=== PATIENT | male | born 1935 | race Caucasian/White ===

== ENCOUNTER → 2016-11-21 | Outpatient (CLI) | payer BC ==
[~2016-11-21] MED LIST: ASCA500 PO; CPRUNK PO; LEVE500T26 PO; MULT-506 PO; PRCUNK PO; TIMOLOL OPB
== END | disposition home or self-care (01) ==
LOC: C.LAB 13:34
PROVIDERS: ATTEND Nurse Practitioner Adult Health
DX: N39.0 Urinary tract infection, site not specified (principal); R33.9 Retention of urine, unspecified; N31.9 Neuromuscular dysfunction of bladder, unspecified

== ENCOUNTER → 2017-01-07 | Outpatient (CLI) | payer BC | END | disposition home or self-care (01) | LOC: C.LABSPEC 17:16 | PROVIDERS: ATTEND Nurse Practitioner Family | DX: N39.0 Urinary tract infection, site not specified (principal); R33.9 Retention of urine, unspecified ==

== ENCOUNTER → 2017-07-01 | Outpatient (CLI) | payer BC | END | disposition home or self-care (01) | LOC: C.LAB 14:36 | PROVIDERS: ATTEND Nurse Practitioner Family | DX: N39.0 Urinary tract infection, site not specified (principal); R10.31 Right lower quadrant pain ==

== ENCOUNTER → 2017-11-05 | Outpatient (CLI) | payer BC ==
--- NOTE | 2017-11-12 08:54 | CODING QUERY MEDICAL NECESSITY ---
CQSUPPORTING DIAGNOSIS NEEDED A supporting diagnosis is required for the test/procedure performed on this patient in order for us to be reimbursed by the patient's insurance. Please provide a supporting diagnosis for the following test/procedure listed below next to the test name along with your signature. *If there is no additional diagnosis for this patient that would support the following test/procedure please document that below next to the test/procedure. Test(s)/Procedure(s) that require a supporting diagnosis: DOS 11/05/17 PROSTATE SPECIFIC TEST Provider Signature: Date: Thank you Amanda Gil [employer] Once completed, please kindly fax back to [phone] For questions please call [phone]
== END | disposition home or self-care (01) ==
LOC: C.LAB 13:50
PROVIDERS: ATTEND Urology
DX: N40.1 Benign prostatic hyperplasia with lower urinary tract symptoms (principal); N39.0 Urinary tract infection, site not specified

== ENCOUNTER 2023-08-15 09:22 | Observation (INO) ==
--- NOTE | 2023-07-19 15:23 | PAT Medication Instructions ---
Medication Instructions Date of Service July 19, 2023 Home Medications Medication Instructions Recorded sildenafil 100 mg tablet (Viagra) 100 mg PO DAILY PRN sexual 02/20/23 activity #10 tabs latanoprost 0.005 % eye drops (Xalatan) 1 drp ophthalmic (eye) HS levetiracetam 500 mg tablet (Keppra) 500 mg PO BID multivitamin 1 tab PO QAM naproxen sodium 220 mg tablet (Aleve) 220 mg PO DAILY PRN sildenafil 100 mg tablet (Viagra) 100 mg PO DAILY PRN aspirin 81 mg capsule 81 mg PO QPM lisinopril 20 mg-hydrochlorothiazide 12.5 mg tablet 1 tab PO QAM ASK your surgeon for instructions naproxen sodium 220 mg tablet (Aleve) 220 mg PO DAILY PRN DO NOT take the morning of surgery multivitamin 1 tab PO QAM sildenafil 100 mg tablet (Viagra) 100 mg PO DAILY PRN lisinopril 20 mg-hydrochlorothiazide 12.5 mg tablet 1 tab PO QAM Take morning of surgery With a small sip of water, OTHERWISE NOTHING TO EAT OR DRINK AFTER MIDNIGHT: levetiracetam 500 mg tablet (Keppra) 500 mg PO BID Take evening before surgery latanoprost 0.005 % eye drops (Xalatan) 1 drp ophthalmic (eye) HS levetiracetam 500 mg tablet (Keppra) 500 mg PO BID aspirin 81 mg capsule 81 mg PO QPM (unless directed otherwise by surgeon) Other Notes If you have any questions please call us at [phone] or [phone] or [phone] or [phone]
--- NOTE | 2023-07-26 14:42 | Anesthesiology Consultation ---
Date of Service July 26, 2023 Assessment & Plan (1) Encounter for pre-operative examination: - awaiting [facility] PCP 08/05/23 pre-op appt. - self-catheterization: patient and his were interested in discussing prince- operative catheterization and surgeon's typical approach, I advised they contact Dr. Thibodeaux's office, [place] for additional discussion on this. They expressed appreciation for this information, denied additional questions or concerns. - Outpatient joint assessment: Patient is currently scheduled for inpatient pathway. If re-evaluated and patient/surgeon requests outpatient pathway, patient is not recommended candidate for outpatient joint program from anesthesia standpoint. Chart Review Chart Review: Pending: Refer to Additional Notes / Consult section and Patient seen in Pre Admission Testing Teaching & Discussion Pre-Anesthesia Teaching/Discussion Notes: Instructed NPO after midnight before surgery, except medications with 15 cc of water. Medication instructions provided according to the PAT guidelines. History Surgery Operation Date: 08/15/23 07:00 Proposed Procedures p Left total Hip Arthroplasty - Stef Thibodeaux MD Height/Weight Height: 5 ft 9 in Weight: 79.4 kg Allergies Allergy/AdvReac Type Severity Reaction Status Date / Time No Known Allergies Allergy Mild Verified 07/19/23 10:46 Medications Home Medications Medication Instructions Recorded Confirmed Last Taken latanoprost 0.005 % eye drops 1 drp ophthalmic (eye) HS 09/08/20 07/19/23 09/11/20 22:30 (Xalatan) levetiracetam 500 mg tablet 500 mg PO BID 09/08/20 07/19/23 09/12/20 06:45 (Keppra) multivitamin 1 tab PO QAM 09/08/20 07/19/23 09/11/20 09:00 naproxen sodium 220 mg tablet 220 mg PO DAILY PRN Pain 09/08/20 07/19/23 09/05/20 (Aleve) sildenafil 100 mg tablet (Viagra) 100 mg PO DAILY PRN sexual 02/20/23 07/19/23 Unknown activity #10 tabs aspirin 81 mg capsule 81 mg PO QPM 07/19/23 07/19/23 Unknown lisinopril 20 1 tab PO QAM 07/19/23 07/19/23 Unknown mg-hydrochlorothiazide 12.5 mg tablet Past Medical History Medical History BPH (benign prostatic hyperplasia) Carotid artery stenosis 50-69% stenosis L ICA, less than 50% stenosis R ICA; denies dizziness, lightheadedness, presyncope or visual changes CKD (chronic kidney disease) stage 3, GFR 30-59 ml/min Flaccid bladder History of basal cell carcinoma History of urinary self-catheterization straight cath TID Melanoma surgery RBBB Seizure last seizure ~2007, grand mal seizures. no problems while on medication. follows with Wesley Álvarez Patient denies h/o stroke, heart attack, heart failure, DM, HTN, blood clots/DVTs or blood transfusions. Exercise / Class Metabolic Activity II 4-5 Yardwork/Stairs/Walk up hill (denies chest discomfort or shortness of breath with 1 FOS) Past Family History Family History Other No family history of adverse response to anesthesia Past Surgical History Surgical History History of cystoscopy History of hernia surgery 09/12/2020 @ [facility] History of melanoma excision History of surgical removal of skin lesion left upper arm Past Anesthesia History No Hx of Anesthesia Complications and No Family Hx of Anesthesia Complications History of PONV No Hx of PONV and No Hx of Motion Sickness Social History Smoking Status: Former smoker tobacco type: pipe Do You Dip or Chew Tobacco: No Smoking End Date: quit smoking a pipe 50yrs ago Hx Alcohol Use: No (quit 1979) Hx Substance Use: No substance use type: does not use Review of Systems Snoring, denies witnessed apneas. Patient denies chest pain, shortness of breath, dyspnea on exertion, reflux, fever, chills, cough, wheezing, or palpitations. Physical Exam Vital Signs Vitals BP 150/87 P 69 TEMP 97.5 SP02 99% on RA RESP 18 Physical Patient resting comfortably in chair in no acute distress, alert and oriented, responding appropriately throughout visit Full cervical extension range of motion without pain TMD 3.5 finger breadths Mallampati Score 2 Dentition: several crowns, denies chipped or loose teeth, implants or bridges Lungs: normal respiratory effort. Good air movement, clear throughout to auscultation, no adventitious breath sounds Cardiac: regular rate and rhythm, no murmurs noted Carotid arteries: negative bruit bilat Lab Results Anesthesia Preop Results Results Anesthesia Widget: WBC 7.66 K/ul (4.8-10.8) 07/26/23 Hgb 13.7 g/dl (14.0-18.0) L 07/26/23 Hct 40.6 % (42.0-52.0) L 07/26/23 Plt 280 K/uL (130-400) 07/26/23 Na 137 mmol/L (136-145) 07/26/23 K 4.3 mmol/L (3.5-5.1) 07/26/23 Cl 103 mmol/L (98-107) 07/26/23 CO2 28 mmol/L (21-32) 07/26/23 BUN 26 mg/dl (6-23) H 07/26/23 Creat 1.19 mg/dl (0.6-1.4) 07/26/23 Glucose Level 81 mg/dl (70-99(Fasting)) 07/26/23 PT 11.0 Seconds (9.0-12.0) 07/26/23 PTT 25.9 Seconds (21.0-31.0) 07/26/23 INR 1.0 (0.9-1.1) 07/26/23 Urine Color Yellow 07/26/23 Urine Appearance Clear (Clear) 07/26/23 Urine pH 7.0 (4.5-7.5) 07/26/23 Urine Specific Tiline 1.016 (1.000-1.030) 07/26/23 Urine Protein Negative (Negative) 07/26/23 Urine Glucose (UA) Negative (Negative) 07/26/23 Urine Ketones Negative (Negative) 07/26/23 Urine Blood Negative (Negative) 07/26/23 Urine Nitrite Negative (Negative) 07/26/23 Urine Bilirubin Negative (Negative) 07/26/23 Urine Urobilinogen Negative (Negative) 07/26/23 Urine Leukocyte Esterase Trace (Negative) H 07/26/23 Urine WBC (Auto) 1-5 /hpf (0-5) 07/26/23 Urine RBC (Auto) 0-4 /hpf (0-4) 07/26/23 Urine Hyaline Casts (Auto) 1-5 /lpf (0-5) 07/26/23 Urine Epithelial Cells (Auto) 0-5 /lpf (0-5) 07/26/23 Urine Bacteria (Auto) 2+ (Negative) H 07/26/23 Blood Type A Positive 07/26/23 Antibody Screen NEGATIVE 07/26/23 Testing Laboratory Results Surgeon's office notified of abnormal UA. Electrocardiogram Date: 07/26/23 NSR, rate 72 bpm RBBB Other Testing Carotid doppler 07/27/23 50-69% stenosis left ICA < 50% stenosis right ICA
--- NOTE | 2023-07-31 09:39 | History & Physical Report ---
Date of Service July 31, 2023 Assessment & Plan (1) Osteoarthritis of left hip: Plan: PRE-OP Diagnosis: Left hip osteoarthritis Planned Procedure: Left total hip arthroplasty Plan: Patient is scheduled to undergo this procedure at the [facility] with a 23-hour observation admission with Dr. Thibodeaux on August. Risks and complications of the procedure such as: Infection, bleeding, pain, scarring, nerve blood vessel damage, weakness, wound problems, stiffness, incomplete relief of symptoms, hardware failure, hardware loosening, wear, fracture, tendon or ligament injury, dislocation, leg length inequality, blood clots, Embolism, heart attack, stroke and were explained to the patient at his visit today. Informed consent to perform the procedure was obtained. Patient also understands risks of proceeding with surgical intervention during the COVID-19 pandemic. Currently he is asymptomatic and states that he has not been in contact with anyone positive for the virus recently. Patient has an appointment to meet with anesthesia later today and while there will obtain CBC with differential, complete metabolic panel, PT/INR, blood type and screen, urinalysis, urine culture and sensitivity, EKG, and a [facility] culture for MRSA. Patient will also need preoperative medical clearance from their primary care provider. Patient is scheduled to see his physicians CHENTE Byers on August 05. Patient states that he plans on doing in-home physical therapy for the first 1 to 2 weeks postoperatively. Patient has a walker, raised toilet seat, shower chair and will purchase a hip kit. During today's visit we reviewed the total hip packet as well as precautions. We discussed discharge planning from the hospital. I provided paperwork to obtain a handicap placard for their vehicle. We discussed lectures offered by [facility] in regards to joint replacement surgery via Zoom. I advised the patient that upon discharge from hospital we will prescribe a narcotic pain medication and anti-inflammatory. Patient will also be on an 81 mg aspirin twice daily for blood clot prevention. Patient will be scheduled for 2-week postoperative follow-up visit with myself on August 28. At that visit we will Provide the patient with an order for outpatient physical therapy and rehab protocol. This chart was completed utilizing [employer] voice recognition software. Grammatical errors, random word insertions, pronoun errors, and in complete sentences are an occasional consequence of the system. Any questions or concerns about the content, text, or information contained within the body of this dictation should be addressed directly to the physician for clarification. History of Present Illness Chief Complaint: Chief Complaint: Left hip pain Primary Care Provider: Courtney Urbina DO History of Present Illness (including history relevant to procedure): This 87-year-old male presents to the clinic today for his preoperative history and physical. Patient complains of a 5-year history of left hip pain that has gradu ally increased over time. Patient states that he fell 2 bland ago and has had increased pain since that event. Patient states that he has tried ultrasound- guided corticosteroid injections, physical therapy, use of nonsteroidal agents and has been using a cane as assistive device for the past several months. Patient states he has great difficulty doing stairs and is starting to notice issues with performing activities of daily living, such as being able [place] He states that over the past 2 bland he has had to use a cart. He is electing to proceed with surgical intervention at this time. Review Of Systems: A 12 point review of systems is formed and is unremarkable except for those things stated in the HPI and past medical history. Past Medical History: Problems: Degenerative joint disease of left hip Left hip pain Cancer Left shoulder pain History of seizures Procedure History Procedure Procedure Date Comments Melanoma Hernia repair - left upper arm Allergies and Sensitivities: No Known Medication Allergies Current Home Meds: (Last Updated 07/29 16:27) aspirin 81 mg PO Daily ciprofloxacin (Cipro 500 mg oral tablet) 500 mg PO tid UTI preop hydroCHLOROthiazide-lisinopril (hydroCHLOROthiazide-lisinopril 12.5 mg-20 mg oral tablet) 90 each, take 1 tablet by mouth every morning Responsible Provider: COURTNEY URBINA 07/26 13:08 latanoprost ophthalmic (latanoprost 0.005% ophthalmic solution) instill 1 drop INTO AFFECTED EYE(S) once daily every evening Store intact bottles under refrigeration. Once opened, the container may be stored at room temperature for 6 weeks. Amber Dominguez 05/18 10:33 levETIRAcetam (levETIRAcetam 500 mg oral tablet) take 1 tablet by mouth twice a day multivitamin (Multiple Vitamins oral tablet) 1 tab PO Daily naproxen (Aleve) 2-3 a day Initial Wt: 07/26 79.0 kg 174 lb Allergies Allergy/AdvReac Type Severity Reaction Status Date / Time No Known Allergies Allergy Mild Verified 07/19/23 10:46 Home Medications Medication Instructions Recorded Confirmed Type latanoprost 0.005 % eye drops 1 drp ophthalmic (eye) HS 09/08/20 07/19/23 History (Xalatan) levetiracetam 500 mg tablet 500 mg PO BID 09/08/20 07/19/23 History (Keppra) multivitamin 1 tab PO QAM 09/08/20 07/19/23 History naproxen sodium 220 mg tablet 220 mg PO DAILY PRN Pain 09/08/20 07/19/23 History (Aleve) sildenafil 100 mg tablet (Viagra) 100 mg PO DAILY PRN sexual 02/20/23 07/19/23 Rx activity #10 tabs aspirin 81 mg capsule 81 mg PO QPM 07/19/23 07/19/23 History lisinopril 20 1 tab PO QAM 07/19/23 07/19/23 History mg-hydrochlorothiazide 12.5 mg tablet Past Med/Surg History Medical History BPH (benign prostatic hyperplasia) Carotid artery stenosis 50-69% stenosis L ICA, less than 50% stenosis R ICA; denies dizziness, lightheadedness, presyncope or visual changes CKD (chronic kidney disease) stage 3, GFR 30-59 ml/min Flaccid bladder History of basal cell carcinoma History of urinary self-catheterization straight cath TID Melanoma surgery RBBB Seizure last seizure ~2007, grand mal seizures. no problems while on medication. follows with Courtney Urbina Surgical History History of cystoscopy History of hernia surgery 09/12/2020 @ [facility] History of melanoma excision History of surgical removal of skin lesion left upper arm Family History Other No family history of adverse response to anesthesia Social History Smoking Status: Former smoker Second Hand Exposure: Yes (hx); Do You Dip or Chew Tobacco: No; Hx Alcohol Use: No (quit 1979) Hx Substance Use: No Preferred Language: Malay Communication Ability: Effective Petrologist Required: No Beliefs That Will Affect Care: None Current Living Situation: Spouse Feels Safe at Home: Yes Assistive Devices: Contacts and Hearing Aid - Bilateral Review of Systems All systems reviewed & are unremarkable except as noted in Subjective Physical Exam Physical Exam: Physical Exam: (relevant to the procedure, including heart and lung evaluation) General: Alert and oriented x3 with proper grooming and hygiene Eyes: Pupils are equal and reactive to light with accommodation. Extraocular movements are intact Throat: Posterior oropharynx is clear with absence of edema, erythema or exu date. Dentition is appropriate Cardiac: Regular rate and rhythm with no murmurs or gallops appreciated Lungs: Clear to auscultation throughout with no wheezing, rales or rhonchi Abdomen: Nonobese, nondistended, nontender with NABS Extremities: Left hip: Flexion is limited to 80 degrees, internal rotation to 0 degrees and external rotation to 50 degrees. There is audible crepitation with passive range of motion. Stinchfield test and straight leg raise test are both positive. Scour impingement test is positive. Patient is neurovascular intact in the left lower extremity but does walk with a slight antalgic gait. Neuro: Cranial nerves II through XII are intact with no motor or sensory deficit Skin: Normal in appearance with no open skin areas or discharge Results & Data Diagnostic Findings Studies o(relevant to the procedure): -xrays that were done include AP pelvis, cross-table lateral, and false profile view of the left hip. These are compared with his prior films done back in August 2022. There is some subtle worsening in terms of irregularity of the acetabular and femoral head surfaces where he w as already [id number] arthritis.
[~2023-08-15 09:22] MED LIST changes: +ACETAMINOPHEN 500 MG TAB PO SCH; -ASCA500 PO; +BUPIVACAINE 0.5 % 5 MG/1 ML PF 10ML VIAL ONE; -CPRUNK PO; +CeleBREX 200 MG CAP PO SCH; +FAMOTIDINE 20 MG TAB PO SCH; -LEVE500T26 PO; +LR 500ML BOLUS, THEN 15ML/HR IV SCH; +LR 60ML/HR IV SCH; -MULT-506 PO; -PRCUNK PO; +ROPIVACAINE 0.5% 5 MG/ML 30 ML VIAL ONE; +ROPIVACAINE 0.5% HCL/PF 150 MG, BUPIVACAINE 0.75% MPF 20 ML, EPINEPHrine 0.15 MG, Ketor... INFIL SCH; +Scopolamine 1 MG TDSY TD SCH; -TIMOLOL OPB; +TRANEXAMIC ACID 1,000 MG **IV Intra-op IV SCH; +TRANEXAMIC ACID 1,000 MG **IV Pre-op IV SCH; +ceFAZolin 2000MG 2,000 MG/15 ML SYR IV SCH; +dexAMETHasone 4 MG TAB PO SCH; +traMADol HCL 50 MG TABLET PO SCH
[2023-08-15] MEDS ORDERED: HYDROmorphone INJ 1 MG/ML SYRINGE IV PRN (10:28)
[2023-08-15] MEDS ORDERED: ePHEDrine sulfate 50 MG/ML AMP IV PRN (10:28)
[2023-08-15] MEDS ORDERED: ONDANSETRON INJ 2 MG/ML 2 ML VIAL IV PRN ×2 (10:28→13:33)
[2023-08-15] MEDS ORDERED: ATROPINE SULFATE 0.1 MG/ML 10ML SYR IV PRN (10:28)
[2023-08-15] MEDS ORDERED: MIDAZOLAM HCL 1 MG/ML 2ML VIAL ONE (10:43)
[2023-08-15] MEDS ORDERED: fentaNYL citrate PF 100 MCG/2 ML VIAL ONE (11:02)
--- NOTE | 2023-08-15 11:04 | History & Physical Bridge Note ---
Date of Service August 15, 2023 History & Physical Bridge Note I have examined the patient, reviewed the History & Physical and in the interval since the performance of the History & Physical I have noted the following changes of clinical significance: no changes noted
[2023-08-15] MEDS ORDERED: ORTHO JOINT ANESTHETIC ONE (11:20)
[2023-08-15] MEDS ORDERED: PROPOFOL IV EMULSION 10 MG/ML 20 ML VIAL IV ONE (12:08)
[2023-08-15] MEDS ORDERED: NALOXONE HCL 0.4 MG/1 ML VIAL/CARP IV PRN (13:33)
[2023-08-15] MEDS ORDERED: METOCLOPRAMIDE HCL INJ 5 MG/ML 2 ML VIAL IV PRN (13:33)
[2023-08-15] MEDS ORDERED: HYDROmorphone INJ 0.5 MG/0.5 ML SYR IV PRN (13:33)
[2023-08-15] MEDS ORDERED: bisacodyL 10 MG SUPP PR PRN (13:33)
[2023-08-15] MEDS ORDERED: oxyCODONE HCL IR 5 MG TAB (IMMEDIATE RELEASE) PO PRN (13:33)
[2023-08-15] MEDS ORDERED: TAMSULOSIN HCL 0.4 MG CAP PO PRN (13:33)
[2023-08-15] MEDS ORDERED: diphenhydrAMINE 50 MG/ML VIAL IV PRN (13:33)
[2023-08-15] MEDS ORDERED: ALUMINUM/MAGNESIUM SUSP 30 ML UDC PO PRN (13:33)
[2023-08-15] MEDS ORDERED: MAGNESIUM HYDROXIDE SUSP 30 ML UDC PO PRN (13:33)
--- NOTE | 2023-08-15 13:33 | Operative Report ---
Post Operative Report Pre & Post Diagnosis Operation Date: 08/15/23 11:00 Pre-Op Diagnosis: Left Hip Osteoarthitis Post-Op Diagnosis: Left Hip Osteoarthitis I identified the patient and participated in the time-out.: Yes Procedure Operation Date: 08/15/23 11:00 Actual Procedures p Left Total Hip Arthroplasty--Uncemented(Left) - Stef Thibodeaux MD Surgeon Stef Thibodeaux MD Communications Attendant Carmen Navarro PA-C Estimated Blood Loss 50 Findings Consistent with Post-Op Diagnosis Specimens femoral head Description of Procedure I was present during the entire case assisting with positioning, prepping, draping, wound retraction, wound closure, dressing and abduction pillow placement. No fellow present. Please see Dr. Thibodeaux procedure note for specifics of the case. I attest to the content of the Intraoperative Record and any orders documented therein. Any exceptions are noted below.
--- NOTE | 2023-08-15 13:51 | Operative Report ---
Post Operative Report Pre & Post Diagnosis Operation Date: 08/15/23 11:00 Prepreoperative diagnosis: Left hip arthritis. Postoperative diagnosis: Left hip arthritis I identified the patient and participated in the time-out.: Yes Procedure Operation Date: 08/15/23 11:00 Left total hip replacement Surgeon Stef Thibodeaux MD [facility] Attendant Carmen Navarro PA-C. No resident or fellow was available to assist. Estimated Blood Loss 50 Findings Consistent with Post-Op Diagnosis Fluids 1 L Specimens Left femoral head Anesthesia Type Spinal MAC Complications We were unable to catheterize his bladder. There is a small amount of bleeding. We consulted urology to assist in managing his catheterizations after surgery. Disposition Disposition: Recovery Room Indications 87-year-old male with medical history significant for flaccid bladder, who self catheterizes 3 times per day, with left hip osteoarthritis refractory to conservative management. X-rays demonstrate joint space narrowing, subchondral sclerosis, and marginal osteophyte formation. I had a long discussion with him about the risks and benefits of surgery, alternatives to surgery, and expected outcomes. After reviewing all these he elected to proceed with surgery. All questions were answered. Informed consent was signed. Description of Procedure Patient was identified in the preoperative holding area where the surgical site, left hip, was marked. A spinal anesthetic was placed, then the patient was brought back to the main operating room, and placed on the operating table. He had self catheterize that morning and requested that we catheterize him in the operating room. The nursing staff initially attempted to catheterize him and were not able to obtain any urine flow in the catheter tubing. They then tried to use a smaller size catheter and still were not able to obtain urine flow back. Small amount of bleeding was noted at the urethral meatus. Since he was under a spinal anesthetic we elected to abort the Rossi catheter placement and consult urology to see him after surgery. Patient was then moved into the lateral decubitus position. Axillary roll was placed. All bony prominences were padded. Perioperative antibiotics and tranexamic acid 1 gram IV were administered. Operative extremity was prepped and draped in the normal sterile fashion. Prior to incision a multidisciplinary timeout was called. All in the room were in agreement. We began by making an incision for a posterior approach to the hip. We dissected down through subcutaneous tissues to the level of the fascia. The fascia was incised in line with the incision. Charnley bow was placed. Fatty tissue was reflected posteriorly off the back of the greater trochanter to expose the piriformis and short external rotators of the hip. The piriformis and short external rotators were dissected off the posterior aspect of the hip. A box cut was made in the capsule. Inferior hip capsule was released off the femur. The femoral head was dislocated. The femoral neck cut was made at our preoperative template. The acetabulum was then exposed. The labrum was sharply excised. Contents of the cotyloid fossa were removed with electrocautery. We then began reaming at a size 8 mm less than our preoperative template. We reamed up by 1 [address] the way up to a size 60 mm cup. This gave us good bleeding cancellus bone circumferentially. The acetabulum was then irrigated out and dried. The real [place] Gription cup was then impacted down into position with 45 degrees of lateral opening and 25 degrees of anteversion. Two cancellous bone screws were placed up into the ilium. Excellent fixation was obtained. A trial liner for a 36 mm femoral head was then placed. Next we turned our attention to the femur. The lateral neck was removed with a box osteotome. Intramedullary guide was used. We then broached all the way up to a size 5 Actis stem. We began trialing with a high offset neck and a +5 head. Hip was reduced. Leg lengths were symmetric. The hip was stable in extension and external rotation, and stable in the sleeper position. At 90 degrees of hip flexion the hip could be internally rotated 40 degrees before levering out of the cup. I felt that his stability exam was good, however, given his age which is a risk factor for postoperative instability I elected to trial a dual mobility component for additional stability. Therefore the hip was dislocated and the femoral head was removed. The acetabulum was re-exposed, and the trial liner was removed. A 60 mm diameter metal liner for a dual mobility component was then impacted into the shell. We checked to ensure that the Malloy taper had engaged which it had. The femur was then exposed. The real size 5 high offset Actis stem was opened up and was impacted into position. The collar sat down nicely on the calcar. a dual mobility trial head with a 51 outer diameter and +5 offset was then placed on the trunnion. The hip was reduced with some mild difficulty. Her stability exam was rechecked. He had full extension, no impingement or instability with extension and external rotation, leg lengths were symmetric, at 90 degrees hip flexion we could not dislocate the hip even with adduction without using a bone hook on the femoral neck to dislocate the hip. I was very happy with the stability exam. Therefore the hip was redislocated, and the real bipolar head was assembled on the back table. This is a 51 mm outer diameter head and a ceramic 28 mm diameter +5 offset inner head. The hip was then atraumatically reduced. Another 1 gram of IV tranexamic acid was started prior to closure. The wound was irrigated out with sterile Betadine solution. The periarticular injection cocktail was then placed. The short external rotators, piriformis, and posterior capsule were repaired through drill holes in the greater trochanter using #2 Vicryl. The fascia was run with a looped #1 PDS. The subcutaneous layer was closed with #1 PDS. The dermal layer was closed with 2-0 Vicryl. Zip line was used for the skin followed by a Silverlon dressing. A compressive dressing was then placed. The patient was then rolled supine. Leg lengths were rechecked and were symmetric. An abduction pillow was placed. Sedation was lifted and the patient was transferred to the recovery room in stable condition. Summary of implants: Depuy [place] Gription Acetabular Shell Sector Cup, 60 mm outer diameter 2 [place] Cancellous bone screws, 6.5 x 35 mm and 6.5 x 25 mm Howard hole eliminator [place] metal dual mobility liner with a 60 mm outer diameter and 51 mm inner diameter DePuy Actis collared stem, 5 high offset Bimentum Ultrex 51/28 polyethylene outer head 28 mm ceramic femoral head with +5 offset Postoperative course: Patient will be admitted to the hospital from the recovery room. Patient will be weightbearing as tolerated with posterior hip precautions. Aspirin for DVT prophylaxis I attest to the content of the Intraoperative Record and any orders documented therein. Any exceptions are noted below.
--- NOTE | 2023-08-15 14:02 | Urology Consultation ---
Date of Consultation August 15, 2023 Assessment & Plan (1) BPH with urinary obstruction: Patient s/p left total hip arthroplasty today Urology consulted for difficult Rossi placement An 18 [place] coud catheter placed and draining yellow urine Maintain Rossi catheter overnight Can perform voiding trial prior to discharge per ortho Or can f/u with urology outpatient for removal if the plan changes Patient can resume his schedule of CIC after catheter removal will sign off, please contact us with any issues or concerns History of Present Illness Attending Physician: Stef Thibodeaux MD History of Present Illness 87-year-old male with past medical history of BPH with urinary obstruction, flaccid bladder and osteoarthritis of left hip who presented today for scheduled Left total hip arthroplasty with Dr. Mathias. Urology was consulted postoperatively for Rossi catheter placement. Patient follows with Dr. Sherman for BPH with obstruction, flaccid bladder. He performs CIC 3 times per day. Patient was seen in the PACU directly after his surgery. ROS unobtainable due to reduced consciousness from anesthesia. Patient was prepped and draped using sterile technique. A well lubricated 18 [place] coud catheter was placed per urethra without difficulty. There was return of yellow urine. Balloon inflated to 10 mL. No complications noted. Allergies Allergy/AdvReac Type Severity Reaction Status Date / Time No Known Allergies Allergy Mild Verified 08/15/23 09:50 Home Medications Medication Instructions Recorded Confirmed Type latanoprost 0.005 % eye drops 1 drp ophthalmic (eye) HS 09/08/20 08/15/23 History (Xalatan) levetiracetam 500 mg tablet 500 mg PO BID 09/08/20 08/15/23 History (Keppra) multivitamin 1 tab PO QAM 09/08/20 08/15/23 History naproxen sodium 220 mg tablet 220 mg PO DAILY PRN Pain 09/08/20 08/15/23 History (Aleve) sildenafil 100 mg tablet (Viagra) 100 mg PO DAILY PRN sexual 02/20/23 08/15/23 Rx activity #10 tabs aspirin 81 mg capsule 81 mg PO QPM 07/19/23 08/15/23 History lisinopril 20 1 tab PO QAM 07/19/23 08/15/23 History mg-hydrochlorothiazide 12.5 mg tablet Patient History Medical History BPH (benign prostatic hyperplasia) Carotid artery stenosis 50-69% stenosis L ICA, less than 50% stenosis R ICA; denies dizziness, l ightheadedness, presyncope or visual changes CKD (chronic kidney disease) stage 3, GFR 30-59 ml/min Flaccid bladder History of basal cell carcinoma History of urinary self-catheterization straight cath TID Melanoma surgery RBBB Seizure last seizure ~2007, grand mal seizures. no problems while on medication. follows with Wesley Álvarez Surgical History History of cystoscopy History of hernia surgery 09/12/2020 @ [facility] History of melanoma excision History of surgical removal of skin lesion left upper arm Family History Other No family history of adverse response to anesthesia Social History Smoking Status: Former smoker Smoking End Date: quit smoking a pipe 50yrs ago; Second Hand Exposure: Yes (hx); Do You Dip or Chew Tobacco: No; Tobacco Cessation Education Requested by Patient: No Hx Alcohol Use: No (quit 1979) Hx Substance Use: No Preferred Language: Romanian Communication Ability: Effective Speech And Language Tutor Required: No Beliefs That Will Affect Care: None Current Living Situation: Spouse Other Information That Helps Us Care for You: No Feels Safe at Home: Yes Safety Concerns: Feels Safe At This Time Assistive Devices: Contacts and Hearing Aid - Bilateral Review of Systems Review of Systems: Unobtainable due to reduced consciousness Physical Exam Constitutional: no acute distress Neck: trachea midline Respiratory: no respiratory distress Gastrointestinal (Abdomen): Inspection/Auscultation: abdomen normal to inspection; abdomen not distended Musculoskeletal: Head/Neck/Chest: normocephalic Genitourinary: Patient was prepped and draped using sterile technique. A well lubricated 18 [place] coud catheter was placed per urethra without difficulty. There was return of yellow urine. Balloon inflated to 10 mL. Foreskin replaced after Rossi catheter was placed. No complications noted. Results & Data Vital Signs (Past 12 Hours) Vital Signs Temp Pulse Resp BP Pulse Ox O2 Del Method 08/15/23 09:38 36.7 C 80 20 148/84 H 98 Room Air PG Care Time/CCT Total # of Minutes Spent Total Time Spent with Patient: Total time spent is greater than 50% in coordination of care (as documented) at patient's floor/unit and/or counseling patient: Coding Level of Care Code 73587 INT INP/OBS CARE 1/40MIN Diagnoses BPH with urinary obstruction N40.1; N13.8
--- NOTE | 2023-08-15 15:10 | XRay Report ---
AP PELVIS History: Left total hip arthroplasty. Degenerative arthritis. Postop. FINDINGS: The patient is status post a left total hip arthroplasty. The hardware is intact. No fractu re or dislocation. A Rossi catheter is noted. IMPRESSION: Left total hip arthroplasty. No evidence for hardware complication. ACT 112: Negative or not required by law. Electronically signed by: Colton Wallace M.D. 08/15/2023 3:08 PM
[2023-08-15] MEDS: Scopolamine CHECK PATCH PLACEMENT SCH (15:27)
[2023-08-15] MEDS: SODIUM CHLORIDE 0.9% 1,000 ML IV SCH (15:27)
--- NOTE | 2023-08-15 16:17 | Anesthesiology Progress Note ---
Date of Service August 15, 2023 Anesthesia Post Procedure Vital Signs Vital Signs: Temp Pulse Pulse Resp BP Pulse Ox O2 Del Method 08/15/23 15:59 65 16 134/63 99 Room Air 08/15/23 15:41 36.5 C 73 16 133/70 99 Room Air 08/15/23 15:13 36.3 C L 65 16 124/68 98 Room Air 08/15/23 15:00 72 14 117/69 100 Room Air 08/15/23 14:45 74 12 120/65 97 Room Air 08/15/23 14:20 60 12 121/60 97 Room Air 08/15/23 14:30 36.2 C L 80 12 108/61 98 Room Air 08/15/23 14:10 60 12 120/68 97 Room Air 08/15/23 14:00 56 L 14 111/65 100 Room Air 08/15/23 13:50 66 18 114/64 100 Oxymask 08/15/23 13:40 56 L 18 112/63 100 Oxymask 08/15/23 13:32 36 C L 59 L 12 108/68 100 Oxymask 08/15/23 09:38 36.7 C 80 20 148/84 H 98 Room Air O2 Flow Rate 08/15/23 15:59 08/15/23 15:41 08/15/23 15:13 08/15/23 15:00 08/15/23 14:45 08/15/23 14:20 08/15/23 14:30 08/15/23 14:10 08/15/23 14:00 08/15/23 13:50 4 08/15/23 13:40 4 08/15/23 13:32 6 08/15/23 09:38 Transfer of Care Handoff Completed per policy Notes Mental Status: alert / awake / arousable Patient Amnestic to Procedure: Yes Nausea / Vomiting: adequately controlled Pain: adequately controlled Airway Patency, RR, SpO2: stable & adequate BP & HR: stable & adequate Hydration State: stable & adequate Anesthetic Complications: no major complications apparent
[2023-08-15] MEDS: KETOROLAC TROMETHAMINE 15 MG/ML VIAL IV SCH ×2 (17:12→21:42)
[2023-08-15] MEDS ORDERED: TRANEXAMIC ACID / 0.7% NACL 1,000 MG/100 ML BAG IV SCH (19:45)
[2023-08-15] MEDS: ceFAZolin 2000MG 2,000 MG/15 ML SYR IV SCH (20:20)
[2023-08-15] MEDS: DOCUSATE SODIUM 100 MG CAP PO SCH (20:27)
[2023-08-15] MEDS: ASPIRIN 81 MG ECTAB PO SCH (20:27)
[2023-08-15] MEDS: levETIRAcetam 500 MG TAB PO SCH (20:28)
[2023-08-15] MEDS ORDERED: SENNA 8.6 MG TAB PO SCH (21:00)
[2023-08-15] MEDS ORDERED: LATANOPROST 0.005% OP SOLN 2.5 ML BTL OP SCH (21:00)
[2023-08-15] MEDS ORDERED: NON-FORMULARY MEDICATION (Aspirin 81 mg Capsule) PO SCH (21:00)
[2023-08-15] MEDS: ACETAMINOPHEN 500 MG TAB PO SCH (21:42)
[2023-08-16] MEDS: SODIUM CHLORIDE 0.9% 1,000 ML IV SCH (00:20)
[2023-08-16] MEDS: Scopolamine CHECK PATCH PLACEMENT SCH ×2 (00:20→08:37)
[2023-08-16] MEDS: ceFAZolin 2000MG 2,000 MG/15 ML SYR IV SCH (04:45)
[2023-08-16] MEDS: KETOROLAC TROMETHAMINE 15 MG/ML VIAL IV SCH ×2 (04:49→09:57)
[2023-08-16] MEDS: ACETAMINOPHEN 500 MG TAB PO SCH (05:48)
[2023-08-16] MEDS ORDERED: dexAMETHasone 4 MG TAB PO SCH (08:00)
[2023-08-16] MEDS: DOCUSATE SODIUM 100 MG CAP PO SCH (08:37)
[2023-08-16] MEDS: levETIRAcetam 500 MG TAB PO SCH (08:37)
[2023-08-16] MEDS: ASPIRIN 81 MG ECTAB PO SCH (08:37)
[2023-08-16] MEDS ORDERED: MULTIVITAMIN TAB PO SCH (09:00)
[2023-08-16] MEDS ORDERED: NON-FORMULARY MEDICATION (Multivitamin Tablet) PO SCH (09:00)
[2023-08-16] MEDS ORDERED: LISINOPRIL/HCTZ 20/12.5MG 1 TAB TAB PO SCH (09:00)
[2023-08-16 09:10] LABS: Basophils # (auto) 0.02 K/uL (0.00-0.20); Basophils % (auto) 0.1 %; Hemoglobin 11.7 g/dl (14.0-18.0); Immature Granulocytes # (auto) 0.07 K/uL (0.01-0.20); Immature Granulocytes % (auto) 0.4 %; Lymphocytes # (auto) 1.04 K/uL (1.20-3.40); Lymphocytes % (auto) 6.5 %; Mean Corpuscular Hemoglobin 29.2 pg (25.0-34.0); Mean Corpuscular Hgb Conc 33.4 g/dL (32.0-36.0); Mean Corpuscular Volume 87.3 fL (80.0-100.0); Mean Platelet Volume 9.9 fL (9.4-12.4); Monocytes # (auto) 0.94 K/uL (0.11-0.59); Monocytes % (auto) 5.8 %; Neutrophils % (auto) 87.2 %; Platelet Count 324 K/uL (130-400); RDW Coefficient of Variation 13.3 % (11.5-14.5); RDW Standard Deviation 42.5 fL (36.4-46.3); Red Blood Count 4.01 M/uL (4.70-6.10); White Blood Count 16.07 K/ul (4.8-10.8)
[2023-08-16 09:55] LABS: BUN Creatinine Ratio 22.8 (10-20); Calcium 8.4 mg/dl (8.6-10.3); Creatinine Clr Calc Pharmacy 37.8 ml/min; Est GFR (African American) 50.2 ml/min; Est GFR (Non-African American) 43.3 ml/min; Potassium 4.3 mmol/L (3.5-5.1)
--- NOTE | 2023-08-16 10:42 | Orthopedic Progress Note ---
Date of Service August 16, 2023 Assessment & Plan (1) S/P total left hip arthroplasty: Plan: Total hip precautions were reviewed Weightbearing as tolerated with walker assistance Keep Silverlon dressing in place until 2-week follow-up Ice with easy wrap DVT prophylaxis with aspirin and KOBI stockings Abduction pillow use x6 weeks Pain control with p.o. medication Plan is to discharge home today with in-home physical therapy Follow-up at [facility] orthopedics as previously scheduled With questions contact our clinic at [phone] Admission and Anticipated Discharge Date Admission Date: August 15, 2023 Subjective This 87-year-old male is day 1 status post left total hip arthroplasty. He states he is doing very well this morning. He denies any pain at present. He states that he has been able to transition from his bed to the chair. He currently still has a Rossi catheter in place due to his urinary dysfunction. He is hoping to be discharged home later this morning. He plans on doing in- home physical therapy for the first 2 weeks postoperatively. Currently he denies chest pain, shortness of breath, fever, chills, sweats, lethargy, numbness or tingling in his left lower extremity. He also denies nausea, vomiting or diarrhea. Review of Systems Review of Systems: All systems reviewed & are unremarkable except as noted in Subjective Physical Exam Physical Exam: Left hip: Outer dressing was removed. Silverlon is clean dry and intact and left in place. Patient is able to perform an active straight leg raise test. He is able to actively dorsi and plantarflex his foot without issue. Quad strength is 4 out of 5. He has no pain with light logroll testing. He experiences no pain with light passive hip flexion near 90 degrees as well as with passive internal and external hip rotation. He is neurovascular intact in the left lower extremity. Results & Data Vital Signs (Past 12 Hours) Vital Signs Temp Pulse Resp BP Pulse Ox O2 Del Method 08/16/23 07:12 36.9 C 72 16 123/69 98 Room Air 08/16/23 02:50 36.9 C 62 16 106/54 L 97 Room Air Diagnostic Findings Laboratory Results WBC 16.07 K/ul (4.8-10.8) H 08/16/23 08:45 RBC 4.01 M/uL (4.70-6.10) L 08/16/23 08:45 Hgb 11.7 g/dl (14.0-18.0) L 08/16/23 08:45 Hct 35.0 % (42.0-52.0) L 08/16/23 08:45 MCV 87.3 fL (80.0-100.0) 08/16/23 08:45 MCH 29.2 pg (25.0-34.0) 08/16/23 08:45 MCHC 33.4 g/dL (32.0-36.0) 08/16/23 08:45 RDW Std Deviation 42.5 fL (36.4-46.3) 08/16/23 08:45 RDW Coeff of Nilay 13.3 % (11.5-14.5) 08/16/23 08:45 Plt Count 324 K/uL (130-400) 08/16/23 08:45 MPV 9.9 fL (9.4-12.4) 08/16/23 08:45 Immature Gran % (Auto) 0.4 % 08/16/23 08:45 Neut % (Auto) 87.2 % 08/16/23 08:45 Lymph % (Auto) 6.5 % 08/16/23 08:45 [place] % (Auto) 5.8 % 08/16/23 08:45 Eos % (Auto) 0.0 % 08/16/23 08:45 Baso % (Auto) 0.1 % 08/16/23 08:45 Neut # (Auto) 14.00 K/uL (1.40-6.50) H 08/16/23 08:45 Lymph # (Auto) 1.04 K/uL (1.20-3.40) L 08/16/23 08:45 [place] # (Auto) 0.94 K/uL (0.11-0.59) H 08/16/23 08:45 Eos # (Auto) 0.00 K/uL (0.00-0.50) 08/16/23 08:45 Baso # (Auto) 0.02 K/uL (0.00-0.20) 08/16/23 08:45 Immature Gran # (Auto) 0.07 K/uL (0.01-0.20) 08/16/23 08:45 Sodium 132 mmol/L (136-145) L 08/16/23 08:45 Potassium 4.3 mmol/L (3.5-5.1) 08/16/23 08:45 Chloride 101 mmol/L (98-107) 08/16/23 08:45 Carbon Dioxide 22 mmol/L (21-32) 08/16/23 08:45 Anion Gap 9 (3-11) 08/16/23 08:45 BUN 33 mg/dl (6-23) H 08/16/23 08:45 Creatinine 1.45 mg/dl (0.6-1.4) H 08/16/23 08:45 Est Cr Clr Drug Dosing 37.8 ml/min 08/16/23 08:45 Est GFR ( Amer) 50.2 ml/min 08/16/23 08:45 Est GFR (Non-Af Amer) 43.3 ml/min 08/16/23 08:45 BUN/Creatinine Ratio 22.8 (10-20) H 08/16/23 08:45 Glucose 180 mg/dl (70-99(Fasting)) H 08/16/23 08:45 Calcium 8.4 mg/dl (8.6-10.3) L 08/16/23 08:45 Impressions Pelvis X-Ray 08/15/23 13:34 AP PELVIS History: Left total hip arthroplasty. Degenerative arthritis. Postop. FINDINGS: The patient is status post a left total hip arthroplasty. The hardware is intact. No fracture or dislocation. A Rossi catheter is noted. IMPRESSION: Left total hip arthroplasty. No evidence for hardware complication. ACT 112: Negative or not required by law. Electronically signed by: Colton Wallace M.D. 08/15/2023 3:08 PM
--- NOTE | 2023-08-16 10:45 | Discharge Summary ---
Date of Service August 16, 2023 Admission HPI Per Admitting Provider History of Present Illness (including history relevant to procedure): This 87-year-old male presents to the clinic today for his preoperative history and physical. Patient complains of a 5-year history of left hip pain that has gradually increased over time. Patient states that he fell 2 bland ago and has had increased pain since that event. Patient states that he has tried ultrasound-guided corticosteroid injections, physical therapy, use of nonsteroidal agents and has been using a cane as assistive device for the past several months. Patient states he has great difficulty doing stairs and is starting to notice issues with performing activities of daily living, such as being able [place] He states that over the past 2 bland he has had to use a cart. He is electing to proceed with surgical intervention at this time. Admission Exam Per Admitting Provider Physical Exam: (relevant to the procedure, including heart and lung evaluation) General: Alert and oriented x3 with proper grooming and hygiene Eyes: Pupils are equal and reactive to light with accommodation. Extraocular movements are intact Throat: Posterior oropharynx is clear with absence of edema, erythema or exudate. Dentition is appropriate Cardiac: Regular rate and rhythm with no murmurs or gallops appreciated Lungs: Clear to auscultation throughout with no wheezing, rales or rhonchi Abdomen: Nonobese, nondistended, nontender with NABS Extremities: Left hip: Flexion is limited to 80 degrees, internal rotation to 0 degrees and external rotation to 50 degrees. There is audible crepitation with passive range of motion. Stinchfield test and straight leg raise test are both positive. Scour impingement test is positive. Patient is neurovascular intact in the left lower extremity but does walk with a slight antalgic gait. Neuro: Cranial nerves II through XII are intact with no motor or sensory deficit Skin: Normal in appearance with no open skin areas or discharge Principal Diagnosis Left hip osteoarthritis Discharge Exam Left hip: Outer dressing was removed. Silverlon is clean dry and intact and left in place. Patient is able to perform an active straight leg raise test. He is able to actively dorsi and plantarflex his foot without issue. Quad strength is 4 out of 5. He has no pain with light logroll testing. He experiences no pain with light passive hip flexion near 90 degrees as well as with passive internal and external hip rotation. He is neurovascular intact in the left lower extremity. Discharge Data Allergies Allergy/AdvReac Type Severity Reaction Status Date / Time No Known Allergies Allergy Mild Verified 08/15/23 09:50 Procedures Performed Operation Date: 08/15/23 11:00 Actual Procedures p Left Total Hip Arthroplasty--Uncemented(Left) - Stef Thibodeaux MD Hospital Course (1) S/P total left hip arthroplasty: Had an uneventful overnight stay following left total hip arthroplasty. He is very pleased with the results of surgery. He is anxious to be discharged home later this morning with in-home physical therapy for the next 2 weeks. Total hip precautions were reviewed Weightbearing as tolerated with walker assistance Keep Silverlon dressing in place until 2-week follow-up Ice with easy wrap DVT prophylaxis with aspirin and KOBI stockings Abduction pillow use x6 weeks Pain control with p.o. medication Plan is to discharge home today with in-home physical therapy Follow-up at [facility] orthoped[facility] as previously scheduled With questions contact our clinic at [phone] Total Time Total Time Spent Total Time Spent (In Minutes): 20 mins Discharge Plan Discharge Items Patient Disposition: Home - Home Health Services Reason For Visit: Left Hip Osteoarthitis Discharge Diagnosis: Left Hip Osteoarthritis Activity: As commented below Lifting: None Bathing: Keep incision dry Bathing Comment: May shower tomorrow Sexual Activity: Wait until after follow-up appointment Exercise/Sports: Wait until after follow-up appointment Driving/Machine Use: No driving until cleared by media services specialist Weightbearing: Left weightbearing Weightbearing Comment: as tolerated with walker assistance Non-emergency contact: Surgeon Call non-emergency contact if: you have any medication questions, your pain is not controlled, your temperature is above 101.5, your wound has increased drai nage and your wound pain has increased Follow-up/Referrals: Wesley Álvarez, [Primary Care Provider] - Diet: Regular Addtl Attending Provider Instructions: Post-operative Instructions Dear Patient and Family/Friends, Before you are discharged from the hospital, it is important to know what to expect when you get home after surgery. To that end, we have created this sheet of discharge instructions which covers many commonly asked questions. Make sure you go through this sheet in its entirety with your nurse before you are discharged. Please note that we will go over the specifics of your surgery and recovery when you return for your first post-operative visit. Sincerely, Dr. Thibodeaux Medications 1. Oxycodone 5 mg: take 1-2 tabs every 4-6 hours for post op pain relief. This will be sent to your pharmacy. 2. Naproxen Sodium 220 mg: increase your daily Naproxen to 2 tabs twice daily for post op pain relief. 3. Aspirin 81 mg: increase your daily aspirin the to twice daily for the first 30 days post op for blood clot prevention. 4. Extra Strength Tylenol 500 mg: take 2 tabs every 6-8 hours as needed for additional pain relief. Please purchase. Pain Expect to be in a fair amount of pain after surgery. Remember, our goal is not to eliminate your pain, but to make it tolerable. It is a good idea to stay ahead of your pain by taking the medications you were prescribed once you get home. Typically, the pain starts improving 3-7 days after surgery. You should start weaning off the narcotic pain medication (oxycodone, hydrocodone, hydromorphone, morphine) as soon as your pain improves. Please call our office if your pain is not adequately controlled. Ice Ice your operative site at least 5 times a day for 15-30 minutes at a time. Make sure you have a thin cloth between the ice or cooling unit and your skin to prev ent champion bite. This is especially important if you received a nerve block. Continue icing your operative site for the first 5-7 days after surgery, then as needed. Diet/Nausea/Vomiting Start by drinking clear liquids and eating crackers. If you can tolerate this, then you may resume your normal diet. If you feel nauseated or vomit, take Zofran/ondansetron (if prescribed). Please call our office if you have intractable nausea or vomiting, or, if after hours, you may go to the Emergency Room for help. Constipation Constipation is a common side effect of narcotic pain medication. If you have not had a bowel movement within 2 days after surgery, we recommend purchasing an over the counter laxative such as Milk of Magnesia, Dulcolax, or Miralax from a local pharmacy, and taking it as instructed. Call our clinic if any questions. Nerve block The anesthesia team sometimes places a nerve block to help with post-operative pain control. This results in significant numbness and inability to move the extremity. The nerve block usually wears off in 8-12 hours, but sometimes can last up to 24 hours. Please call our office if you are still unable to move your extremity after 24 hours, unless you received a pain pump to take home. Nerve blocks typically wear off quickly, so start taking pain medication as soon as you start feeling soreness near your surgical site. Weight bearing and Range of Motion. Do not bear any weight through your operative extremity immediately after s urgery. If you had upper extremity surgery, do not lift anything with that arm. If you are in a knee brace, keep it locked in place until your follow-up. We will discuss your weight bearing, range of motion, and lifting restrictions in detail at your first post-operative appointment. Continuous Passive Motion (CPM) Machine If you were prescribed a CPM machine, it will start after your first post- operative appointment, at which time we will give you instructions on the range of motion settings and duration of treatment Physical therapy You will be given a prescription for physical therapy or occupational therapy at your first post-operative appointment. Typically, patients start therapy within 1 week of surgery Wound care and showering We will inspect your wound at your first post-operative visit, and may do a dressing change at that time. Most patients will be in a water-proof dressing that is removed 14 days after surgery. It is normal to see some dried blood on the dressing. Do not remove your dressing, paper strips or sutures yourself unless you are given permission. Showering is allowed the day after surgery. Do not scrub or remove any dressings. The wound should not be submerged underwater (i.e. in a bathtub or pool) until 4 weeks after surgery KOBI stockings If you were given white stockings, these are to be worn at all times except to shower (on both legs) for the first 2 weeks after surgery. Driving You may not drive while taking narcotic pain medication or while in a cast, splint, sling or brace. You, the patient, need to make the final determination about when you are safe to drive, however, the earliest you may consider driving after surgery is below: Hand/Wrist/Elbow Surgery: 3 days Shoulder Surgery: 2 weeks Hip,/Knee/Ankle Surgery: 4 weeks Fracture repair: 6 weeks Return to Work Your return to work depends on what surgery was done and what type of work you do. Please bring any paperwork your employer needs completed to your first post-operative visit. Also, bring a description of your job duties, as this helps us to understand what risks you may face at work. Travel Avoid long distance travel (greater than 1 hour) in airplanes and cars for the first 6 weeks after surgery. If you must travel, you need to have a Doppler ultrasound done before you travel to rule out a blood clot in your legs. Follow-up You should have a follow-up appointment already scheduled 1-2 days after surgery. If not, please contact our office to make this appointment before you leave the hospital. When to call the office It is normal to have swelling and bruising in the limb that was operated on. This will improve with time. It is also normal to have fevers for the first 2 days after surgery. Reasons you should call your doctor include: Uncontrolled pain; Nausea, vomiting, or constipation that does not improve with medication; Fevers over 101.5, chills, sweats; Drainage or bleeding from the wound; Foul odor; Spreading areas of redness; Any other concerns Pending Studies at Discharge: No Stand-Alone Forms: My [facility] Medications and DC Order Prescriptions: New acetaminophen [Tylenol Extra Strength] 500 mg Tablet 1,000 mg PO Q8 30 Days Qty: 180 0RF aspirin 81 mg Tablet,Delayed Release (Dr/Ec) 81 mg PO BID 30 Days Qty: 60 0RF oxycodone 5 mg Tablet 5 - 10 mg PO Q4H MDD Ongoing Rx PRN (Reason: pain) Qty: 28 0RF Continued sildenafil [Viagra] 100 mg tablet 100 mg PO DAILY PRN (Reason: sexual activity) Qty: 10 3RF Rx Instructions: Take one tablet by mouth one hour before needed. multivitamin Tablet 1 tab PO QAM latanoprost [Xalatan] 0.005 % Drops 1 drp OPHTHALMIC (EYE) HS levetiracetam [Keppra] 500 mg Tablet 500 mg PO BID naproxen sodium [Aleve] 220 mg Tablet 220 mg PO DAILY PRN (Reason: Pain) lisinopril-hydrochlorothiazide 20-12.5 mg Tablet 1 tab PO QAM aspirin 81 mg Capsule 81 mg PO QPM Admission Data Admit Date/Time: 08/15/23 13:34 Attending Provider: Stef Thibodeaux Admit Provider: Stef Thibodeaux Primary Care Provider: Wesley Álvarez Other Providers: [facility] ; [facility]
[2023-08-16] MEDS ORDERED: CeleBREX 200 MG CAP PO SCH (21:00)
== END 2023-08-16 12:28 | disposition home health service (06) ==
LOC: 3E 09:22 → ASU 09:22